=== PATIENT | female | born 1985 | race Caucasian/White ===

== ENCOUNTER 2019-11-28 13:01 | Emergency (ER) | payer OTHER ==
[2019-11-28 13:07] VITALS: RESP 16
--- NOTE | 2019-11-28 13:18 | ED ---
Upper Extremity HPI - General Chief Complaint: Extremity Injury, Upper Stated Complaint: Fall,L Arm injury Time Seen by Provider: 11/28/19 13:07 Source: patient, RN notes reviewed Mode of arrival: ambulatory Limitations: no limitations - History of Present Illness Initial Comments: This a 34-year-old female presents emergency Department chief complaint of left elbow pain, fall. Patient states that she tripped and fell her left arm sidewalk. Denies any head injury. Patient states that she cannot straighten her arm out. Patient also has been having issues with her right arm states that she's been pain with certain movements and achiness in the muscle. Patient is right-hand dominant. Patient denies any paresthesias no other complaints. - Related Data Allergies Allergy/AdvReac Type Severity Reaction Status Date / Time No Known Allergies Allergy Verified 11/28/19 13:07 Review of Systems ROS Statement: Those systems with pertinent positive or pertinent negative responses have been documented in the HPI. ROS Other: All systems not noted in ROS Statement are negative. Past Medical History Past Medical History: No Reported History History of Any Multi-Drug Resistant Organisms: None Reported Past Surgical History: Section Past Psychological History: Anxiety, Depression Smoking Status: Never smoker Past Alcohol Use History: Occasional Past Drug Use History: Marijuana General Exam Limitations: no limitations General appearance: alert, in no apparent distress Head exam: Present: atraumatic, normocephalic, normal inspection Neck exam: Present: normal inspection, full ROM. Absent: tenderness, meningismus, lymphadenopathy Respiratory exam: Present: normal lung sounds bilaterally. Absent: respiratory distress, wheezes, rales, rhonchi, stridor Cardiovascular Exam: Present: regular rate, normal rhythm, normal heart sounds. Absent: systolic murmur, diastolic murmur, rubs, gallop, clicks Extremities exam: Present: other (Right arm there is pain with wrist extension, supination. There is no bony tenderness. Neurovascular intact full range of motion full-strength left arm unable to fully extend left elbow there is moderate swelling and tenderness with palpation) Course Vital Signs 11/28/19 13:02 Temperature 98.6 F Pulse Rate 74 Respiratory 16 Rate Blood Pressure 120/79 O2 Sat by Pulse 99 Oximetry Procedures - Orthopedic Splinting/Casting Injury #1 Side: left Upper Extremity Injury Location: long arm, elbow Upper Extremity Immobilizer: posterior splint, synthetic pre-padded splint Medical Decision Making - Medical Decision Making 34-year-old presented for left arm injury. Patient had a left radial head fracture splinted and follow up with orthopedics patient is neurovascularly intact. Disposition Clinical Impression: Right lateral epicondylitis, Closed fracture of left proximal radius Disposition: HOME SELF-CARE Condition: Stable Instructions (If sedation given, give patient instructions): Tennis Elbow (ED), Arm Fracture in Adults (ED) Additional Instructions: Please return to the Emergency Department if symptoms worsen or any other concerns. Is patient prescribed a controlled substance at d/c from ED?: No Referrals: None,Stated [Primary Care Provider] - 1-2 days Cale Blackwood MD [STAFF PHYSICIAN] - 1-2 days Time of Disposition: 13:46
--- NOTE | 2019-11-28 13:56 | XR ---
EXAMINATION TYPE: XR elbow complete LT DATE OF EXAM: 11/28/2019 COMPARISON: NONE HISTORY: 34-year-old female with pain after fall TECHNIQUE: 3 views FINDINGS: Underlying elbow joint effusion. There is a subtle nondisplaced intra-articular fracture of the radia l head and neck. No subluxation or dislocation. IMPRESSION: Nondisplaced intra-articular fracture of the radial head and neck with associated joint effusion.
[2019-11-28 14:12] VITALS: BP 132/78; PULSE 78; TEMP 97.8
== END 2019-11-28 14:11 | disposition home or self-care (01) ==
LOC: EC 13:01
DX: S52.125A Nondisplaced fracture of head of left radius, initial encounter for closed fracture (principal); S52.135A Nondisplaced fracture of neck of left radius, initial encounter for closed fracture; M77.11 Lateral epicondylitis, right elbow; W01.0XXA Fall on same level from slipping, tripping and stumbling without subsequent striking against object, initial encounter; Y92.480 Sidewalk as the place of occurrence of the external cause
CPT/HCPCS: 29105; 99283